=== PATIENT | male | born 1955 | race Caucasian/White ===

== ENCOUNTER 2024-02-20 17:37 | Inpatient (IN) | payer OTHER ==
[~2024-02-20] VITALS: Ht 175.3 cm; Wt 60.0 kg
[2024-02-20] MEDS: CefTRIAXone/D5W-Rocephin 1gm 50 ML IV ONE (18:05)
[2024-02-20 18:27] LABS: BASOPHILS # (AUTO) 0.1 X10'3 (0-0.2); BASOPHILS % (AUTO) 0.6 % (0-1); EOSINOPHILS # (AUTO) 0.2 X10'3 (0-0.9); EOSINOPHILS % (AUTO) 1.3 % (0-6); HEMOGLOBIN 13.9 g/dl (14.0-17.9); LYMPHOCYTES # (AUTO) 2.6 X10'3 (1.1-4.8); LYMPHOCYTES % (AUTO) 19.1 % (21-51); MEAN CORPUSCULAR HEMOGLOBIN 31.8 PG (27.0-31.0); MEAN CORPUSCULAR HGB CONC 32.4 g/dL (33.0-36.5); MEAN PLATELET VOLUME 7.2 FL (7.4-10.4); MONOCYTES # (AUTO) 1.3 X10'3 (0-0.9); MONOCYTES % (AUTO) 9.3 % (2-12); NEUTROPHILS # (AUTO) 9.6 X10'3 (1.8-7.7); NEUTROPHILS % (AUTO) 69.7 % (42-75); PLATELET COUNT 383 X10'3 (140-440); RED BLOOD COUNT 4.39 X10'6 (4.70-6.10); WHITE BLOOD COUNT 13.7 X10'3 (4.5-11.0)
[2024-02-20] MEDS: normal saline 1000ml 1,000 ML IV ONE (18:28)
[2024-02-20] MEDS: ipratropium/albuterol 3ml nebule NEB ONE (18:40)
[2024-02-20 18:41] VITALS: PULSE 126; RESP 18
[2024-02-20 18:42] LABS: ALANINE AMINOTRANSFERASE 48 U/L (12-78); ALBUMIN 3.4 G/DL (3.4-5.0); ALBUMIN/GLOBULIN RATIO 0.8 (1.1-1.5); ALKALINE PHOSPHATASE 72 IU/L (46-116); ANION GAP 8 (8-16); ASPARTATE AMINO TRANSFERASE 51 U/L (10-37); BILIRUBIN,TOTAL 0.4 MG/DL (0.1-1.0); BLOOD UREA NITROGEN 13 MG/DL (7-18); BUN/CREATININE RATIO 18.3 (10.0-20.0); CALCIUM 8.9 MG/DL (8.5-10.1); CHLORIDE 103 MMOL/L (99-107); CREATININE 0.71 MG/DL (0.60-1.10); GLUCOSE 102 MG/DL (70-104); POTASSIUM 4.2 MMOL/L (3.5-5.1); SODIUM 138 MMOL/L (135-145); TOTAL CARBON DIOXIDE 27.1 MMOL/L (24-32); TOTAL PROTEIN 7.8 G/DL (6.4-8.2); eCRCL 86 ML/MIN; eGFR > 90 ML/MIN
[2024-02-20] MEDS: methylPREDNISolone sod succ 125mg/2ml vial IV ONE (18:42)
[2024-02-20 18:48] LABS: PRO BRAIN NATRIURETIC PEPTIDE 77 PG/ML (0-125)
[2024-02-20 18:51] VITALS: PULSE 127; RESP 20; O2SAT 94
[2024-02-20] MEDS: LORazepam 2 mg/ml vial IV ONE (19:42)
[2024-02-20] MEDS ORDERED: magnesium Cl slow-release 64mg tablet PO PRN (21:35)
[2024-02-20] MEDS ORDERED: acetaminophen 325mg tablet PO PRN (21:35)
[2024-02-20] MEDS ORDERED: ondansetron/PF 4mg/2ml inj IV PRN (21:35)
[2024-02-20] MEDS ORDERED: morphine 2 MG/ML inj. syringe IV PRN (21:35)
[2024-02-20] MEDS ORDERED: magnesium sulf-water 2g/50mL 50 ML IV PRN (21:35)
[2024-02-20] MEDS ORDERED: mag hydrox/Alum hydrox/simeth 30ml oral suspension PO PRN (21:35)
[2024-02-20] MEDS ORDERED: magnesium hydroxide 30ml (MOM) UD suspension PO PRN (21:35)
[2024-02-20] MEDS ORDERED: magnesium sulf-water 4G/100mL 100 ML IV PRN (21:35)
[2024-02-20] MEDS ORDERED: potassium Cl 20 mEq SR tablet PO PRN ×2 (21:35)
[2024-02-20] MEDS ORDERED: potassium Cl 40MEQ/1/2NS 520ml 520 ML IV PRN (21:35)
[2024-02-20 21:52] LABS: APTT 23 SECONDS (22-32); PROTHROMBIN TIME 9.4 SECONDS (9.0-12.0)
[2024-02-20 22:00] LABS: HEMOGLOBIN A1C 5.7 % (4.5-6.2)
[2024-02-20 22:01] LABS: INR 0.9 INR
[2024-02-20 22:05] LABS: MAGNESIUM 1.9 MG/DL (1.5-2.4); PHOSPHORUS 5.4 MG/DL (2.3-4.5)
[2024-02-20] MEDS: LORazepam 2 mg/ml vial IV PRN (22:13)
[2024-02-20] MEDS: levoFLOXACIN-Levaquin 500mg/D5 100 ML IV SCH (22:13)
[2024-02-20] MEDS: normal saline 1000ml 1,000 ML IV SCH (22:13)
[2024-02-20 23:19] VITALS: PULSE 114; RESP 16; O2SAT 94
[2024-02-20] MEDS: ipratropium/albuterol 3ml nebule NEB SCH (23:19)
[2024-02-20 23:27] VITALS: PULSE 112; RESP 16
[2024-02-21] VITALS (17 sets, daily range): BP systolic 123–176; BP diastolic 69–96; PULSE 92–129; RESP 16–21; TEMP 97.6–98.1; O2SAT 92–99
[2024-02-21 01:44] LABS: BILIRUBIN,URINE NEGATIVE (Neg); CLARITY,URINE CLEAR (Clear); COLOR,URINE YELLOW (Yellow); GLUCOSE, URINE NEGATIVE (Neg); KETONES,URINE 15 mg/dl (Neg); LEUKOCYTE ESTERASE ,URINE NEGATIVE (Neg); NITRITES, URINE NEGATIVE (Neg); OCCULT BLOOD,URINE NEGATIVE (Neg); PROTEIN,URINE NEGATIVE (Neg); UROBILINOGEN,URINE 0.2 E.U/dL (0.2-1.0)
[2024-02-21 01:45] LABS: UA COLLECTION TYPE URINAL
[2024-02-21 02:26] LABS: BASOPHILS % (AUTO) 0 % (0-1); EOSINOPHILS % (AUTO) 0.1 % (0-6); HEMATOCRIT 39.6 % (42.0-52.0); LYMPHOCYTES # (AUTO) 0.6 X10'3 (1.1-4.8); LYMPHOCYTES % (AUTO) 7.1 % (21-51); MEAN CORPUSCULAR HEMOGLOBIN 31.9 PG (27.0-31.0); MEAN CORPUSCULAR HGB CONC 32.8 g/dL (33.0-36.5); MEAN CORPUSCULAR VOLUME 97.3 FL (78-98); MEAN PLATELET VOLUME 7.1 FL (7.4-10.4); MONOCYTES # (AUTO) 0.1 X10'3 (0-0.9); MONOCYTES % (AUTO) 1.4 % (2-12); NEUTROPHILS # (AUTO) 7.8 X10'3 (1.8-7.7); NEUTROPHILS % (AUTO) 91.4 % (42-75); PLATELET COUNT 328 X10'3 (140-440); RED BLOOD COUNT 4.07 X10'6 (4.70-6.10); RED CELL DISTRIBUTION WIDTH 15.3 % (11.5-14.5); WHITE BLOOD COUNT 8.6 X10'3 (4.5-11.0)
[2024-02-21 02:43] LABS: ALANINE AMINOTRANSFERASE 39 U/L (12-78); ALBUMIN/GLOBULIN RATIO 0.8 (1.1-1.5); ALKALINE PHOSPHATASE 60 IU/L (46-116); ANION GAP 11 (8-16); ASPARTATE AMINO TRANSFERASE 31 U/L (10-37); BILIRUBIN,TOTAL 0.5 MG/DL (0.1-1.0); BLOOD UREA NITROGEN 15 MG/DL (7-18); BUN/CREATININE RATIO 21.1 (10.0-20.0); CALCIUM 8.1 MG/DL (8.5-10.1); CHLORIDE 103 MMOL/L (99-107); CHOL/HDL RATIO 1.4 (0.00-4.99); CHOLESTEROL 125 MG/DL (0-200); CREATININE 0.71 MG/DL (0.60-1.10); GLUCOSE 103 MG/DL (70-104); HDL CHOLESTEROL 91 MG/DL (35-60); LDL CHOLESTEROL 24 MG/DL (50-100); MAGNESIUM 1.5 MG/DL (1.5-2.4); POTASSIUM 4.3 MMOL/L (3.5-5.1); SODIUM 137 MMOL/L (135-145); TOTAL CARBON DIOXIDE 23.5 MMOL/L (24-32); TOTAL PROTEIN 6.7 G/DL (6.4-8.2); TRIGLYCERIDES 20 MG/DL (20-135); eCRCL 86 ML/MIN; eGFR > 90 ML/MIN
[2024-02-21] MEDS: K and/or MAG REPLACEMENT MC SCH (07:15)
[2024-02-21] MEDS: docusate sod 100mg capsule PO SCH (08:00)
[2024-02-21] MEDS: azithromycin/NS 500mg/250ml 250 ML IV SCH (08:28)
[2024-02-21] MEDS: folic acid 1mg/0.2ml inj IV SCH (08:29)
[2024-02-21] MEDS: methylPREDNISolone sod succ/PF 40mg inj. IV SCH (08:29)
[2024-02-21] MEDS: thiamine 100mg/ml 2ml inj. IV SCH (08:29)
[2024-02-21] MEDS: multivitamins, therapeutics tablet PO SCH (08:29)
[2024-02-21] MEDS: heparin, porcine 5000 units/ml vial SQ SCH (08:30)
[2024-02-21] MEDS: CefTRIAXone/D5W-Rocephin 1gm 50 ML IV SCH (10:12)
[2024-02-21] MEDS ORDERED: NO HOME MEDS (13:50)
[2024-02-22] VITALS (20 sets, daily range): BP systolic 111–129; BP diastolic 68–84; PULSE 91–120; RESP 13–22; TEMP 97.9–98.9; O2SAT 92–97
[2024-02-22 07:46] LABS: BASOPHILS % (AUTO) 0 % (0-1); EOSINOPHILS % (AUTO) 0 % (0-6); HEMATOCRIT 42.1 % (42.0-52.0); HEMOGLOBIN 13.6 g/dl (14.0-17.9); LYMPHOCYTES # (AUTO) 1.2 X10'3 (1.1-4.8); LYMPHOCYTES % (AUTO) 9.3 % (21-51); MEAN CORPUSCULAR HEMOGLOBIN 31.3 PG (27.0-31.0); MEAN CORPUSCULAR HGB CONC 32.4 g/dL (33.0-36.5); MEAN CORPUSCULAR VOLUME 96.6 FL (78-98); MEAN PLATELET VOLUME 7.2 FL (7.4-10.4); MONOCYTES # (AUTO) 0.6 X10'3 (0-0.9); MONOCYTES % (AUTO) 4.3 % (2-12); NEUTROPHILS # (AUTO) 11.1 X10'3 (1.8-7.7); NEUTROPHILS % (AUTO) 86.4 % (42-75); PLATELET COUNT 354 X10'3 (140-440); RED BLOOD COUNT 4.36 X10'6 (4.70-6.10); WHITE BLOOD COUNT 12.9 X10'3 (4.5-11.0)
[2024-02-22 08:37] LABS: ALANINE AMINOTRANSFERASE 36 U/L (12-78); ALBUMIN 2.9 G/DL (3.4-5.0); ALBUMIN/GLOBULIN RATIO 0.7 (1.1-1.5); ALKALINE PHOSPHATASE 56 IU/L (46-116); ANION GAP 7 (8-16); ASPARTATE AMINO TRANSFERASE 22 U/L (10-37); BILIRUBIN,TOTAL 0.4 MG/DL (0.1-1.0); BLOOD UREA NITROGEN 10 MG/DL (7-18); BUN/CREATININE RATIO 17.2 (10.0-20.0); CALCIUM 8.7 MG/DL (8.5-10.1); CHLORIDE 106 MMOL/L (99-107); CREATININE 0.58 MG/DL (0.60-1.10); GLUCOSE 124 MG/DL (70-104); POTASSIUM 3.7 MMOL/L (3.5-5.1); SODIUM 140 MMOL/L (135-145); TOTAL CARBON DIOXIDE 27.2 MMOL/L (24-32); TOTAL PROTEIN 6.9 G/DL (6.4-8.2); eCRCL 105 ML/MIN; eGFR > 90 ML/MIN
[2024-02-22] MEDS: furosemide 40mg/4ml inj IV SCH (09:58)
[2024-02-22] MEDS: haloperidol 5mg tablet PO PRN (22:36)
[2024-02-23] VITALS (14 sets, daily range): BP systolic 124–169; BP diastolic 81–102; PULSE 87–126; RESP 15–21; TEMP 97.3–98.7; O2SAT 93–97
[2024-02-23 06:43] LABS: BASOPHILS % (AUTO) 0.1 % (0-1); EOSINOPHILS % (AUTO) 0 % (0-6); HEMATOCRIT 39.4 % (42.0-52.0); HEMOGLOBIN 13.4 g/dl (14.0-17.9); LYMPHOCYTES # (AUTO) 1.3 X10'3 (1.1-4.8); LYMPHOCYTES % (AUTO) 12.9 % (21-51); MEAN CORPUSCULAR HEMOGLOBIN 32.9 PG (27.0-31.0); MEAN CORPUSCULAR HGB CONC 33.9 g/dL (33.0-36.5); MEAN CORPUSCULAR VOLUME 96.9 FL (78-98); MONOCYTES # (AUTO) 0.7 X10'3 (0-0.9); MONOCYTES % (AUTO) 7.2 % (2-12); NEUTROPHILS # (AUTO) 8.1 X10'3 (1.8-7.7); NEUTROPHILS % (AUTO) 79.8 % (42-75); PLATELET COUNT 375 X10'3 (140-440); RED BLOOD COUNT 4.07 X10'6 (4.70-6.10); RED CELL DISTRIBUTION WIDTH 14.7 % (11.5-14.5); WHITE BLOOD COUNT 10.2 X10'3 (4.5-11.0)
[2024-02-23 07:34] LABS: ALANINE AMINOTRANSFERASE 35 U/L (12-78); ALBUMIN 2.7 G/DL (3.4-5.0); ALBUMIN/GLOBULIN RATIO 0.8 (1.1-1.5); ALKALINE PHOSPHATASE 51 IU/L (46-116); ANION GAP 6 (8-16); ASPARTATE AMINO TRANSFERASE 25 U/L (10-37); BILIRUBIN,TOTAL 0.3 MG/DL (0.1-1.0); BLOOD UREA NITROGEN 13 MG/DL (7-18); BUN/CREATININE RATIO 22.4 (10.0-20.0); CALCIUM 8.7 MG/DL (8.5-10.1); CHLORIDE 106 MMOL/L (99-107); CREATININE 0.58 MG/DL (0.60-1.10); GLUCOSE 125 MG/DL (70-104); MAGNESIUM 2.1 MG/DL (1.5-2.4); POTASSIUM 3.7 MMOL/L (3.5-5.1); SODIUM 140 MMOL/L (135-145); TOTAL PROTEIN 6.3 G/DL (6.4-8.2); eCRCL 105 ML/MIN; eGFR > 90 ML/MIN
[2024-02-24] VITALS (17 sets, daily range): BP systolic 99–149; BP diastolic 62–98; PULSE 91–118; RESP 15–20; TEMP 97.4–98.5; O2SAT 93–95
[2024-02-24 06:31] LABS: BASOPHILS % (AUTO) 0.1 % (0-1); EOSINOPHILS % (AUTO) 0.1 % (0-6); HEMATOCRIT 42.3 % (42.0-52.0); HEMOGLOBIN 13.9 g/dl (14.0-17.9); LYMPHOCYTES % (AUTO) 19.6 % (21-51); MEAN CORPUSCULAR HEMOGLOBIN 31.8 PG (27.0-31.0); MEAN CORPUSCULAR HGB CONC 32.8 g/dL (33.0-36.5); MEAN CORPUSCULAR VOLUME 96.8 FL (78-98); MEAN PLATELET VOLUME 7.5 FL (7.4-10.4); MONOCYTES # (AUTO) 0.9 X10'3 (0-0.9); MONOCYTES % (AUTO) 8.8 % (2-12); NEUTROPHILS # (AUTO) 7.1 X10'3 (1.8-7.7); NEUTROPHILS % (AUTO) 71.4 % (42-75); PLATELET COUNT 387 X10'3 (140-440); RED BLOOD COUNT 4.37 X10'6 (4.70-6.10); RED CELL DISTRIBUTION WIDTH 14.6 % (11.5-14.5); WHITE BLOOD COUNT 9.9 X10'3 (4.5-11.0)
[2024-02-24 06:40] LABS: ALANINE AMINOTRANSFERASE 35 U/L (12-78); ALBUMIN 2.7 G/DL (3.4-5.0); ALBUMIN/GLOBULIN RATIO 0.8 (1.1-1.5); ALKALINE PHOSPHATASE 49 IU/L (46-116); ANION GAP 7 (8-16); ASPARTATE AMINO TRANSFERASE 18 U/L (10-37); BILIRUBIN,TOTAL 0.3 MG/DL (0.1-1.0); BLOOD UREA NITROGEN 14 MG/DL (7-18); BUN/CREATININE RATIO 24.6 (10.0-20.0); CALCIUM 8.5 MG/DL (8.5-10.1); CHLORIDE 104 MMOL/L (99-107); CREATININE 0.57 MG/DL (0.60-1.10); GLUCOSE 120 MG/DL (70-104); MAGNESIUM 1.9 MG/DL (1.5-2.4); POTASSIUM 3.8 MMOL/L (3.5-5.1); SODIUM 140 MMOL/L (135-145); TOTAL CARBON DIOXIDE 29.5 MMOL/L (24-32); TOTAL PROTEIN 6.3 G/DL (6.4-8.2); eCRCL 107 ML/MIN; eGFR > 90 ML/MIN
[2024-02-24] MEDS: azithromycin 250mg tablet PO SCH (08:42)
[2024-02-24] MEDS: thiamine 100mg tablet PO SCH (08:42)
[2024-02-25 02:59] VITALS: PULSE 89; RESP 17; O2SAT 94
[2024-02-25 03:07] VITALS: PULSE 101; RESP 20
[2024-02-25 06:00] VITALS: BP 117/87; PULSE 99; RESP 16; TEMP 97.6; O2SAT 94
[2024-02-25 06:27] LABS: BASOPHILS % (AUTO) 0.2 % (0-1); EOSINOPHILS % (AUTO) 0.2 % (0-6); HEMATOCRIT 41.8 % (42.0-52.0); HEMOGLOBIN 13.9 g/dl (14.0-17.9); LYMPHOCYTES # (AUTO) 1.8 X10'3 (1.1-4.8); LYMPHOCYTES % (AUTO) 18.7 % (21-51); MEAN CORPUSCULAR HEMOGLOBIN 32.1 PG (27.0-31.0); MEAN CORPUSCULAR HGB CONC 33.2 g/dL (33.0-36.5); MEAN CORPUSCULAR VOLUME 96.7 FL (78-98); MEAN PLATELET VOLUME 7.2 FL (7.4-10.4); MONOCYTES # (AUTO) 0.9 X10'3 (0-0.9); MONOCYTES % (AUTO) 9.2 % (2-12); NEUTROPHILS % (AUTO) 71.7 % (42-75); PLATELET COUNT 399 X10'3 (140-440); RED BLOOD COUNT 4.32 X10'6 (4.70-6.10); RED CELL DISTRIBUTION WIDTH 14.9 % (11.5-14.5); WHITE BLOOD COUNT 9.8 X10'3 (4.5-11.0)
[2024-02-25 07:15] LABS: ALANINE AMINOTRANSFERASE 35 U/L (12-78); ALBUMIN 2.6 G/DL (3.4-5.0); ALBUMIN/GLOBULIN RATIO 0.8 (1.1-1.5); ALKALINE PHOSPHATASE 47 IU/L (46-116); ANION GAP 5 (8-16); ASPARTATE AMINO TRANSFERASE 17 U/L (10-37); BILIRUBIN,TOTAL 0.2 MG/DL (0.1-1.0); BLOOD UREA NITROGEN 17 MG/DL (7-18); BUN/CREATININE RATIO 32.1 (10.0-20.0); CALCIUM 8.6 MG/DL (8.5-10.1); CHLORIDE 104 MMOL/L (99-107); CREATININE 0.53 MG/DL (0.60-1.10); GLUCOSE 116 MG/DL (70-104); POTASSIUM 3.9 MMOL/L (3.5-5.1); SODIUM 138 MMOL/L (135-145); TOTAL CARBON DIOXIDE 29.1 MMOL/L (24-32); TOTAL PROTEIN 5.9 G/DL (6.4-8.2); eCRCL 115 ML/MIN; eGFR > 90 ML/MIN
[2024-02-25 07:44] VITALS: PULSE 85; PULSE 88; RESP 17; RESP 18; O2SAT 98
[2024-02-25] MEDS: folic acid 1mg tablet PO SCH (09:06)
[2024-02-25] MEDS ORDERED: ALBU90AE INH (10:13)
[2024-02-25] MEDS ORDERED: PRED10TA23 PO (10:13)
[2024-02-25] MEDS ORDERED: FLUT1DIS4 INH (10:13)
[2024-02-25 12:16] VITALS: PULSE 101; PULSE 102; RESP 17; RESP 18; O2SAT 96
== END 2024-02-25 14:49 | disposition home health service (06) | DRG 871 ==
LOC: ER 17:38 → ED HOLD 21:36 → EDBEDREQ 02-21 05:24 → ORTHO 4S 02-21 06:54
PROVIDERS: ADMIT Internal Medicine Pulmonary Disease; ATTEND Registered Nurse Psychiatric/Mental Health
DX: A41.9 Sepsis, unspecified organism (principal); J18.8 Other pneumonia, unspecified organism; J96.01 Acute respiratory failure with hypoxia; J44.1 Chronic obstructive pulmonary disease with (acute) exacerbation; J44.0 Chronic obstructive pulmonary disease with (acute) lower respiratory infection; F10.931 Alcohol use, unspecified with withdrawal delirium; Y90.9 Presence of alcohol in blood, level not specified; Z66 Do not resuscitate; Z79.899 Other long term (current) drug therapy; Z72.0 Tobacco use
CPT/HCPCS: 36415; 71045; 80053; 80061; 81003; 83036; 83605; 83735; 83880; 84100; 84484; 85025; 85610; 85730; 87040; 87081; 87502; 87503; 93005; 93971; 94640; 94760; 96365; 96375; 97116; 97161; 97530; 99285; A4615; A6449; G0378; J0456; J0696; J1644; J1940; J1956; J2060; J2919; J3411; J3490; J7030

== ENCOUNTER 2024-06-25 22:42 | Inpatient (IN) | payer OTHER ==
[~2024-06-25] VITALS: Ht 175.3 cm; Wt 79.0 kg
[~2024-06-25 22:42] MED LIST: ALBU90AE INH; FLUT1DIS4 INH; NO HOME MEDS
[2024-06-25] MEDS: methylPREDNISolone sod succ 125mg/2ml vial IV ONE (23:26)
[2024-06-25] MEDS: normal saline 1000ML IV soln IVB ONE (23:26)
[2024-06-25 23:32] LABS: BASOPHILS # (AUTO) 0.1 X10'3 (0-0.2); BASOPHILS % (AUTO) 0.7 % (0-1); EOSINOPHILS # (AUTO) 0.2 X10'3 (0-0.9); EOSINOPHILS % (AUTO) 2.3 % (0-6); HEMATOCRIT 45.1 % (42.0-52.0); HEMOGLOBIN 15.2 g/dl (14.0-17.9); LYMPHOCYTES # (AUTO) 2.3 X10'3 (1.1-4.8); LYMPHOCYTES % (AUTO) 22.1 % (21-51); MEAN CORPUSCULAR HEMOGLOBIN 31.9 PG (27.0-31.0); MEAN CORPUSCULAR HGB CONC 33.7 g/dL (33.0-36.5); MEAN CORPUSCULAR VOLUME 94.6 FL (78-98); MEAN PLATELET VOLUME 7.1 FL (7.4-10.4); MONOCYTES # (AUTO) 0.8 X10'3 (0-0.9); MONOCYTES % (AUTO) 7.3 % (2-12); NEUTROPHILS % (AUTO) 67.6 % (42-75); PLATELET COUNT 314 X10'3 (140-440); RED BLOOD COUNT 4.77 X10'6 (4.70-6.10); RED CELL DISTRIBUTION WIDTH 13.5 % (11.5-14.5); WHITE BLOOD COUNT 10.4 X10'3 (4.5-11.0)
[2024-06-25 23:44] LABS: APTT 23 SECONDS (22-32); PROTHROMBIN TIME 9.7 SECONDS (9.0-12.0)
[2024-06-25 23:51] LABS: ANION GAP 6 (8-16); BLOOD UREA NITROGEN 9 MG/DL (7-18); BUN/CREATININE RATIO 16.1 (10.0-20.0); CHLORIDE 98 MMOL/L (99-107); CREATININE 0.56 MG/DL (0.60-1.10); GLUCOSE 107 MG/DL (70-104); SODIUM 136 MMOL/L (135-145); TOTAL CARBON DIOXIDE 32.1 MMOL/L (24-32); eCRCL 128 ML/MIN; eGFR > 90 ML/MIN
[2024-06-25 23:52] LABS: ALBUMIN 3.2 G/DL (3.4-5.0); CALCIUM 9.4 MG/DL (8.5-10.1); PRO BRAIN NATRIURETIC PEPTIDE 39 PG/ML (0-125)
[2024-06-25 23:54] LABS: INR 0.9 INR; POTASSIUM 4.6 MMOL/L (3.5-5.1)
[2024-06-26] VITALS (17 sets, daily range): BP systolic 106–153; BP diastolic 83–103; PULSE 97–120; RESP 16–24; TEMP 96.9–98.4; O2SAT 95–100
[2024-06-26] MEDS: albuterol 2.5 MG/3 ML nebule NEB ONE (00:32)
[2024-06-26] MEDS ORDERED: magnesium sulf-water 2g/50mL 50 ML IV PRN (01:50)
[2024-06-26] MEDS ORDERED: potassium Cl 40MEQ/1/2NS 520ml 520 ML IV PRN (01:50)
[2024-06-26] MEDS ORDERED: magnesium sulf-water 4G/100mL 100 ML IV PRN (01:50)
[2024-06-26 02:37] LABS: MAGNESIUM 1.9 MG/DL (1.5-2.4); POTASSIUM 4.1 MMOL/L (3.5-5.1)
[2024-06-26] MEDS: albuterol 2.5 MG/3 ML nebule NEB SCH (08:00)
[2024-06-26] MEDS: methylPREDNISolone sod succ/PF 40mg inj. IV SCH (09:02)
[2024-06-26] MEDS: nicotine 14mg patch - 24hr TD SCH (09:02)
[2024-06-26] MEDS ORDERED: pneumococcal 23-VAL P-sac vacc 25 mcg/0.5ml vial IMVAC ONE (10:00)
[2024-06-26] MEDS ORDERED: LORazepam 2 mg/ml vial IV PRN (23:10)
[2024-06-26] MEDS ORDERED: LORazepam 1 MG tablet PO PRN (23:10)
[2024-06-27 06:00] VITALS: BP 128/90; PULSE 86; RESP 18; TEMP 97.4; O2SAT 99
[2024-06-27 06:01] LABS: MAGNESIUM 1.9 MG/DL (1.5-2.4)
[2024-06-27 08:00] VITALS: RESP 18; O2SAT 99
[2024-06-27 08:40] VITALS: PULSE 108; RESP 22; O2SAT 97
[2024-06-27 08:57] VITALS: PULSE 104; RESP 18
[2024-06-27 09:09] LABS: HBSAG SCREEN Confirm. indicated (Negative); HEP B SURF AB Non Reactive (.)
[2024-06-27 11:13] LABS: HBSAG CONFIRMATION Positive (.); HEP B CORE AB, IGM Negative (Negative); HEP B CORE AB, TOT Positive (Negative)
[2024-06-27 11:44] LABS: BASOPHILS % (AUTO) 0.2 % (0-1); EOSINOPHILS % (AUTO) 0 % (0-6); HEMATOCRIT 41.2 % (42.0-52.0); HEMOGLOBIN 13.8 g/dl (14.0-17.9); LYMPHOCYTES # (AUTO) 1.6 X10'3 (1.1-4.8); LYMPHOCYTES % (AUTO) 8.5 % (21-51); MEAN CORPUSCULAR HEMOGLOBIN 31.8 PG (27.0-31.0); MEAN CORPUSCULAR HGB CONC 33.4 g/dL (33.0-36.5); MEAN CORPUSCULAR VOLUME 95.2 FL (78-98); MEAN PLATELET VOLUME 7.9 FL (7.4-10.4); MONOCYTES # (AUTO) 0.9 X10'3 (0-0.9); MONOCYTES % (AUTO) 4.4 % (2-12); NEUTROPHILS # (AUTO) 16.8 X10'3 (1.8-7.7); NEUTROPHILS % (AUTO) 86.9 % (42-75); PLATELET COUNT 363 X10'3 (140-440); RED BLOOD COUNT 4.33 X10'6 (4.70-6.10); RED CELL DISTRIBUTION WIDTH 13.6 % (11.5-14.5); WHITE BLOOD COUNT 19.4 X10'3 (4.5-11.0)
[2024-06-27 11:57] LABS: ALANINE AMINOTRANSFERASE 18 U/L (12-78); ALBUMIN 2.9 G/DL (3.4-5.0); ALBUMIN/GLOBULIN RATIO 0.7 (1.1-1.5); ALKALINE PHOSPHATASE 68 IU/L (46-116); ANION GAP 6 (8-16); ASPARTATE AMINO TRANSFERASE 15 U/L (10-37); BILIRUBIN,TOTAL 0.3 MG/DL (0.1-1.0); BLOOD UREA NITROGEN 13 MG/DL (7-18); BUN/CREATININE RATIO 26.5 (10.0-20.0); CALCIUM 9.3 MG/DL (8.5-10.1); CHLORIDE 105 MMOL/L (99-107); CREATININE 0.49 MG/DL (0.60-1.10); GLUCOSE 126 MG/DL (70-104); POTASSIUM 4.2 MMOL/L (3.5-5.1); SODIUM 141 MMOL/L (135-145); TOTAL CARBON DIOXIDE 30.5 MMOL/L (24-32); TOTAL PROTEIN 7.1 G/DL (6.4-8.2); eCRCL 146 ML/MIN; eGFR > 90 ML/MIN
[2024-06-27] MEDS ORDERED: BUDE0.5A11 NEB (13:18)
[2024-06-27] MEDS ORDERED: NICO-631 TD (13:18)
[2024-06-27] MEDS ORDERED: PRED20TA PO (13:18)
[2024-06-27] MEDS ORDERED: ALBU2.5V7 NEB (13:19)
[2024-06-27] MEDS ORDERED: ALBU90AE INH (13:19)
[2024-06-30] MEDS ORDERED: thiamine 100mg tablet PO SCH (08:00)
[2024-07-01] MEDS ORDERED: folic acid 1mg tablet PO SCH (08:00)
== END 2024-06-27 14:45 | disposition home or self-care (01) | DRG 189 ==
LOC: ER 22:43 → ORTHO 4S 06-26 01:54
PROVIDERS: ADMIT Internal Medicine Critical Care Medicine; ATTEND Internal Medicine
DX: J96.21 Acute and chronic respiratory failure with hypoxia (principal); J44.1 Chronic obstructive pulmonary disease with (acute) exacerbation; D72.823 Leukemoid reaction; Z87.891 Personal history of nicotine dependence; Z79.899 Other long term (current) drug therapy; Z82.5 Family history of asthma and other chronic lower respiratory diseases
CPT/HCPCS: 36415; 71045; 80048; 80053; 83735; 83880; 84132; 84484; 85025; 85610; 85730; 86704; 86705; 86706; 87081; 87340; 93005; 94640; 94760; 99291; A6258; G0378; J2919; J7030

== ENCOUNTER 2024-08-20 00:20 | Emergency (ER) | payer OTHER, MEDICARE ==
[~2024-08-20] VITALS: Ht 175.3 cm; Wt 60.0 kg
[~2024-08-20 00:20] MED LIST changes: +ALBU2.5V7 NEB; +BUDE0.5A11 NEB; -FLUT1DIS4 INH; -NO HOME MEDS; +PRED20TA PO
[2024-08-20 00:51] LABS: BASOPHILS # (AUTO) 0.1 X10'3 (0-0.2); BASOPHILS % (AUTO) 0.3 % (0-1); EOSINOPHILS # (AUTO) 0.2 X10'3 (0-0.9); EOSINOPHILS % (AUTO) 0.9 % (0-6); HEMATOCRIT 43.1 % (42.0-52.0); HEMOGLOBIN 14.1 g/dl (14.0-17.9); LYMPHOCYTES % (AUTO) 15.3 % (21-51); MEAN CORPUSCULAR HEMOGLOBIN 30.9 PG (27.0-31.0); MEAN CORPUSCULAR HGB CONC 32.6 g/dL (33.0-36.5); MEAN CORPUSCULAR VOLUME 94.9 FL (78-98); MEAN PLATELET VOLUME 6.7 FL (7.4-10.4); MONOCYTES # (AUTO) 1.7 X10'3 (0-0.9); MONOCYTES % (AUTO) 8.5 % (2-12); NEUTROPHILS # (AUTO) 14.6 X10'3 (1.8-7.7); PLATELET COUNT 393 X10'3 (140-440); RED BLOOD COUNT 4.55 X10'6 (4.70-6.10); RED CELL DISTRIBUTION WIDTH 13.6 % (11.5-14.5); WHITE BLOOD COUNT 19.4 X10'3 (4.5-11.0)
[2024-08-20 01:07] LABS: ALANINE AMINOTRANSFERASE 23 U/L (12-78); ALBUMIN/GLOBULIN RATIO 0.6 (1.1-1.5); ALKALINE PHOSPHATASE 77 IU/L (46-116); ANION GAP 4 (8-16); ASPARTATE AMINO TRANSFERASE 20 U/L (10-37); BILIRUBIN,TOTAL 0.4 MG/DL (0.1-1.0); BLOOD UREA NITROGEN 14 MG/DL (7-18); BUN/CREATININE RATIO 26.4 (10.0-20.0); CALCIUM 9.1 MG/DL (8.5-10.1); CHLORIDE 98 MMOL/L (99-107); CREATININE 0.53 MG/DL (0.60-1.10); GLUCOSE 123 MG/DL (70-104); POTASSIUM 4.2 MMOL/L (3.5-5.1); SODIUM 135 MMOL/L (135-145); TOTAL PROTEIN 7.7 G/DL (6.4-8.2); eCRCL 115 ML/MIN; eGFR > 90 ML/MIN
[2024-08-20 01:13] LABS: PRO BRAIN NATRIURETIC PEPTIDE 58 PG/ML (0-125)
[2024-08-20] MEDS: methylPREDNISolone sod succ 125mg/2ml vial IV ONE (01:26)
[2024-08-20] MEDS: normal saline 1000ML IV soln IVB ONE (01:26)
[2024-08-20] MEDS: triamcinolone acetonide 40mg/ml inj IM ONE (01:28)
[2024-08-20] MEDS: albuterol 2.5 MG/3 ML nebule NEB ONE (01:41)
[2024-08-20 01:42] VITALS: PULSE 121; RESP 20; O2SAT 99
[2024-08-20 01:51] VITALS: PULSE 126; RESP 18; O2SAT 100
[2024-08-20] MEDS ORDERED: ALB0.5UD NEB (02:45)
[2024-08-20] MEDS ORDERED: ALBU18HF2 INH (02:45)
[2024-08-20 06:13] VITALS: BP 130/72; PULSE 99; RESP 18; TEMP 98.6; O2SAT 96
== END 2024-08-20 06:15 | disposition home or self-care (01) ==
LOC: ER 00:21
DX: J44.1 Chronic obstructive pulmonary disease with (acute) exacerbation (principal); Z20.822 Contact with and (suspected) exposure to COVID-19
CPT/HCPCS: 36415; 71045; 80053; 83605; 83880; 84145; 84484; 85025; 87040; 87502; 87503; 87811; 93005; 94640; 96361; 96372; 96374; 99285; J2919; J3301; J7030; 94760; A4615

== ENCOUNTER 2024-09-04 10:48 | Inpatient (IN) | payer OTHER, MEDICARE ==
[~2024-09-04] VITALS: Ht 175.3 cm; Wt 57.9 kg
[~2024-09-04 10:48] MED LIST changes: +ALB0.5UD NEB; +ALBU18HF2 INH
[2024-09-04 12:39] LABS: BASOPHILS # (AUTO) 0.1 X10'3 (0-0.2); BASOPHILS % (AUTO) 0.7 % (0-1); EOSINOPHILS # (AUTO) 0.3 X10'3 (0-0.9); EOSINOPHILS % (AUTO) 2.4 % (0-6); HEMATOCRIT 42.1 % (42.0-52.0); HEMOGLOBIN 13.9 g/dl (14.0-17.9); LYMPHOCYTES # (AUTO) 1.7 X10'3 (1.1-4.8); LYMPHOCYTES % (AUTO) 13.2 % (21-51); MEAN CORPUSCULAR HEMOGLOBIN 31.1 PG (27.0-31.0); MEAN CORPUSCULAR VOLUME 94.1 FL (78-98); MEAN PLATELET VOLUME 6.8 FL (7.4-10.4); MONOCYTES % (AUTO) 7.8 % (2-12); NEUTROPHILS # (AUTO) 9.6 X10'3 (1.8-7.7); NEUTROPHILS % (AUTO) 75.9 % (42-75); PLATELET COUNT 346 X10'3 (140-440); RED BLOOD COUNT 4.48 X10'6 (4.70-6.10); RED CELL DISTRIBUTION WIDTH 13.7 % (11.5-14.5); WHITE BLOOD COUNT 12.6 X10'3 (4.5-11.0)
[2024-09-04 13:46] LABS: ALBUMIN 2.9 G/DL (3.4-5.0); ANION GAP 5 (8-16); BLOOD UREA NITROGEN 7 MG/DL (7-18); BUN/CREATININE RATIO 15.2 (10.0-20.0); CALCIUM 8.6 MG/DL (8.5-10.1); CHLORIDE 102 MMOL/L (99-107); CREATININE 0.46 MG/DL (0.60-1.10); GLUCOSE 87 MG/DL (70-104); POTASSIUM 4.1 MMOL/L (3.5-5.1); PRO BRAIN NATRIURETIC PEPTIDE 61 PG/ML (0-125); SODIUM 139 MMOL/L (135-145); TOTAL CARBON DIOXIDE 32.4 MMOL/L (24-32); eCRCL 145 ML/MIN; eGFR > 90 ML/MIN
[2024-09-04] MEDS: dexamethasone sod phosphate 10mg/ml inj IM STA (14:03)
[2024-09-04] MEDS: dexamethasone 4mg/ml inj IV ONE (14:03)
[2024-09-04] MEDS: albuterol 2.5 MG/3 ML nebule NEB ONE (14:25)
[2024-09-04] MEDS: ipratropium/albuterol 3ml nebule NEB PRN (14:25)
[2024-09-04 14:26] VITALS: PULSE 116; RESP 20; O2SAT 93
[2024-09-04 15:13] VITALS: PULSE 122; RESP 18
[2024-09-04] MEDS ORDERED: PRED5TAB PO (15:33)
[2024-09-04] MEDS ORDERED: magnesium Cl slow-release 64mg tablet PO PRN (15:35)
[2024-09-04] MEDS ORDERED: potassium Cl 40MEQ/1/2NS 520ml 520 ML IV PRN (15:35)
[2024-09-04] MEDS ORDERED: magnesium hydroxide 30ml (MOM) UD suspension PO PRN (15:35)
[2024-09-04] MEDS ORDERED: magnesium sulf-water 4G/100mL 100 ML IV PRN (15:35)
[2024-09-04] MEDS ORDERED: potassium Cl 20 mEq SR tablet PO PRN ×2 (15:35)
[2024-09-04] MEDS ORDERED: magnesium sulf-water 2g/50mL 50 ML IV PRN (15:35)
[2024-09-04] MEDS ORDERED: ipratropium/albuterol 3ml nebule NEB PRN (15:40)
[2024-09-04] MEDS: methylPREDNISolone sod succ 125mg/2ml vial IV SCH (16:21)
[2024-09-04] MEDS: CefTRIAXone/D5W-Rocephin 1gm 50 ML IV SCH (16:26)
[2024-09-04] MEDS: azithromycin 250mg tablet PO SCH (16:26)
[2024-09-04 17:26] LABS: BILIRUBIN,URINE NEGATIVE (Neg); CLARITY,URINE CLEAR (Clear); COLOR,URINE YELLOW (Yellow); GLUCOSE, URINE NEGATIVE (Neg); KETONES,URINE 15 mg/dl (Neg); LEUKOCYTE ESTERASE ,URINE SMALL (Neg); NITRITES, URINE NEGATIVE (Neg); OCCULT BLOOD,URINE NEGATIVE (Neg); PROTEIN,URINE NEGATIVE (Neg); UROBILINOGEN,URINE 0.2 E.U/dL (0.2-1.0)
[2024-09-04 17:32] LABS: UA COLLECTION TYPE URINAL
[2024-09-04 17:37] LABS: BACTERIA,URINE 1+ /HPF (Neg); RBC,URINE 0-2 /HPF (0-2); SQUAMOUS EPITHELIAL CELL,UR NONE SEEN /LPF (FEW); WBC,URINE 0-4 /HPF (0-4)
[2024-09-04 17:48] LABS: HEMOGLOBIN A1C 5.7 % (4.5-6.2)
[2024-09-04] MEDS ORDERED: haloperidol lactate 5mg/ml inj IM PRN (18:05)
[2024-09-04 18:26] LABS: ETHANOL < 10 MG/DL (<10)
[2024-09-04 19:07] VITALS: PULSE 111; RESP 18; O2SAT 96
[2024-09-04] MEDS: ipratropium/albuterol 3ml nebule NEB SCH (19:07)
[2024-09-04 19:15] VITALS: PULSE 106; RESP 17
[2024-09-04 19:21] LABS: URINE AMPHETAMINE SCREEN NEGATIVE (Neg); URINE BARBITUATE SCREEN NEGATIVE (Neg); URINE BENZODIAZEPINES SCREEN NEGATIVE (Neg); URINE CANNABINOID SCREEN NEGATIVE (Neg); URINE COCAINE SCREEN NEGATIVE (Neg); URINE METHADONE SCREEN NEGATIVE (Neg); URINE OPIATE SCREEN NEGATIVE (Neg); URINE PHENCYCLIDINE SCREEN NEGATIVE (Neg)
[2024-09-04 20:00] VITALS: RESP 14; O2SAT 94
[2024-09-04] MEDS: K and/or MAG REPLACEMENT MC SCH (20:00)
[2024-09-04] MEDS: docusate sod 100mg capsule PO SCH (20:37)
[2024-09-04] MEDS: heparin, porcine 5000 units/ml vial SQ SCH (20:37)
[2024-09-04] MEDS: thiamine 100mg/ml 2ml inj. IV SCH (21:20)
[2024-09-04 23:55] VITALS: BP 141/75; PULSE 101; RESP 14; RESP 20; TEMP 97.6; O2SAT 94
[2024-09-05] VITALS (16 sets, daily range): BP systolic 105–159; BP diastolic 60–95; PULSE 83–123; RESP 12–21; TEMP 96.6–98; O2SAT 92–99
[2024-09-05 06:00] LABS: BASOPHILS % (AUTO) 0 % (0-1); EOSINOPHILS % (AUTO) 0 % (0-6); HEMATOCRIT 36.8 % (42.0-52.0); HEMOGLOBIN 12.4 g/dl (14.0-17.9); LYMPHOCYTES # (AUTO) 0.8 X10'3 (1.1-4.8); LYMPHOCYTES % (AUTO) 7.4 % (21-51); MEAN CORPUSCULAR HEMOGLOBIN 31.3 PG (27.0-31.0); MEAN CORPUSCULAR HGB CONC 33.8 g/dL (33.0-36.5); MEAN CORPUSCULAR VOLUME 92.6 FL (78-98); MONOCYTES # (AUTO) 0.2 X10'3 (0-0.9); MONOCYTES % (AUTO) 2.3 % (2-12); NEUTROPHILS # (AUTO) 9.7 X10'3 (1.8-7.7); NEUTROPHILS % (AUTO) 90.3 % (42-75); PLATELET COUNT 322 X10'3 (140-440); RED BLOOD COUNT 3.98 X10'6 (4.70-6.10); RED CELL DISTRIBUTION WIDTH 13.6 % (11.5-14.5); WHITE BLOOD COUNT 10.7 X10'3 (4.5-11.0)
[2024-09-05 06:21] LABS: ALANINE AMINOTRANSFERASE 23 U/L (12-78); ALBUMIN 2.6 G/DL (3.4-5.0); ALBUMIN/GLOBULIN RATIO 0.8 (1.1-1.5); ALKALINE PHOSPHATASE 59 IU/L (46-116); ANION GAP 2 (8-16); ASPARTATE AMINO TRANSFERASE 10 U/L (10-37); BILIRUBIN,TOTAL 0.3 MG/DL (0.1-1.0); BLOOD UREA NITROGEN 11 MG/DL (7-18); BUN/CREATININE RATIO 22.4 (10.0-20.0); CALCIUM 8.4 MG/DL (8.5-10.1); CHLORIDE 104 MMOL/L (99-107); CHOL/HDL RATIO 2.6 (0.00-4.99); CHOLESTEROL 181 MG/DL (0-200); CREATININE 0.49 MG/DL (0.60-1.10); GLUCOSE 123 MG/DL (70-104); HDL CHOLESTEROL 69 MG/DL (35-60); LDL CHOLESTEROL 98 MG/DL (50-100); POTASSIUM 3.9 MMOL/L (3.5-5.1); SODIUM 140 MMOL/L (135-145); TOTAL CARBON DIOXIDE 33.7 MMOL/L (24-32); TRIGLYCERIDES 33 MG/DL (20-135); eCRCL 136 ML/MIN; eGFR > 90 ML/MIN
[2024-09-05] MEDS: folic acid 1mg/0.2ml inj IV SCH (10:27)
[2024-09-05] MEDS: LORazepam 1 MG tablet PO PRN (14:29)
[2024-09-05] MEDS: mag hydrox/Alum hydrox/simeth 30ml oral suspension PO PRN (14:32)
[2024-09-05] MEDS: ondansetron/PF 4mg/2ml inj IV PRN (16:06)
[2024-09-05] MEDS: CefTRIAXone/D5W-Rocephin 1gm 50 ML IV SCH (16:11)
[2024-09-05] MEDS: diazepam inj 5 MG/ML inj. IV SCH (17:56)
[2024-09-05] MEDS: ondansetron/PF 4mg/2ml inj IV ONE (17:57)
[2024-09-05] MEDS: acetaminophen 325mg tablet PO PRN (20:23)
[2024-09-05] MEDS: haloperidol 5mg tablet PO PRN (21:53)
[2024-09-06] VITALS (20 sets, daily range): BP systolic 121–168; BP diastolic 74–89; PULSE 92–108; RESP 13–21; TEMP 97.2–98; O2SAT 94–99
[2024-09-06 07:34] LABS: BASOPHILS % (AUTO) 0.2 % (0-1); EOSINOPHILS % (AUTO) 0 % (0-6); HEMATOCRIT 38.6 % (42.0-52.0); HEMOGLOBIN 12.9 g/dl (14.0-17.9); LYMPHOCYTES # (AUTO) 1.1 X10'3 (1.1-4.8); LYMPHOCYTES % (AUTO) 5.8 % (21-51); MEAN CORPUSCULAR HEMOGLOBIN 30.9 PG (27.0-31.0); MEAN CORPUSCULAR HGB CONC 33.4 g/dL (33.0-36.5); MEAN CORPUSCULAR VOLUME 92.6 FL (78-98); MEAN PLATELET VOLUME 7.3 FL (7.4-10.4); MONOCYTES # (AUTO) 0.7 X10'3 (0-0.9); MONOCYTES % (AUTO) 3.5 % (2-12); NEUTROPHILS # (AUTO) 17.3 X10'3 (1.8-7.7); NEUTROPHILS % (AUTO) 90.5 % (42-75); PLATELET COUNT 345 X10'3 (140-440); RED BLOOD COUNT 4.17 X10'6 (4.70-6.10); RED CELL DISTRIBUTION WIDTH 13.7 % (11.5-14.5); WHITE BLOOD COUNT 19.1 X10'3 (4.5-11.0)
[2024-09-06 07:54] LABS: ALANINE AMINOTRANSFERASE 16 U/L (12-78); ALBUMIN 2.6 G/DL (3.4-5.0); ALBUMIN/GLOBULIN RATIO 0.7 (1.1-1.5); ALKALINE PHOSPHATASE 60 IU/L (46-116); ANION GAP 5 (8-16); ASPARTATE AMINO TRANSFERASE 12 U/L (10-37); BILIRUBIN,TOTAL 0.3 MG/DL (0.1-1.0); BLOOD UREA NITROGEN 12 MG/DL (7-18); CALCIUM 8.6 MG/DL (8.5-10.1); CHLORIDE 104 MMOL/L (99-107); GLUCOSE 133 MG/DL (70-104); POTASSIUM 4.3 MMOL/L (3.5-5.1); SODIUM 139 MMOL/L (135-145); TOTAL PROTEIN 6.1 G/DL (6.4-8.2); eCRCL 98 ML/MIN; eGFR > 90 ML/MIN
[2024-09-06] MEDS ORDERED: diazepam inj 5 MG/ML inj. IV SCH (18:05)
[2024-09-06] MEDS: chlordiazePOXIDE 5mg capsule PO SCH (21:01)
[2024-09-07] VITALS (16 sets, daily range): BP systolic 118–160; BP diastolic 70–99; PULSE 82–123; RESP 12–20; TEMP 97.3–98.7; O2SAT 93–98
[2024-09-07 07:03] LABS: BASOPHILS # (AUTO) 0.1 X10'3 (0-0.2); BASOPHILS % (AUTO) 0.5 % (0-1); EOSINOPHILS % (AUTO) 0 % (0-6); HEMATOCRIT 36.8 % (42.0-52.0); HEMOGLOBIN 12.5 g/dl (14.0-17.9); LYMPHOCYTES # (AUTO) 0.8 X10'3 (1.1-4.8); LYMPHOCYTES % (AUTO) 4.9 % (21-51); MEAN CORPUSCULAR HEMOGLOBIN 31.4 PG (27.0-31.0); MEAN CORPUSCULAR HGB CONC 33.9 g/dL (33.0-36.5); MEAN CORPUSCULAR VOLUME 92.6 FL (78-98); MEAN PLATELET VOLUME 7.3 FL (7.4-10.4); MONOCYTES # (AUTO) 0.4 X10'3 (0-0.9); MONOCYTES % (AUTO) 2.7 % (2-12); NEUTROPHILS # (AUTO) 14.4 X10'3 (1.8-7.7); NEUTROPHILS % (AUTO) 91.9 % (42-75); PLATELET COUNT 299 X10'3 (140-440); RED BLOOD COUNT 3.98 X10'6 (4.70-6.10); RED CELL DISTRIBUTION WIDTH 13.6 % (11.5-14.5); WHITE BLOOD COUNT 15.7 X10'3 (4.5-11.0)
[2024-09-07 07:13] LABS: ALANINE AMINOTRANSFERASE 14 U/L (12-78); ALBUMIN 2.5 G/DL (3.4-5.0); ALBUMIN/GLOBULIN RATIO 0.7 (1.1-1.5); ALKALINE PHOSPHATASE 55 IU/L (46-116); ANION GAP 4 (8-16); ASPARTATE AMINO TRANSFERASE 10 U/L (10-37); BILIRUBIN,TOTAL 0.2 MG/DL (0.1-1.0); BLOOD UREA NITROGEN 14 MG/DL (7-18); BUN/CREATININE RATIO 25.5 (10.0-20.0); CALCIUM 8.7 MG/DL (8.5-10.1); CHLORIDE 105 MMOL/L (99-107); CREATININE 0.55 MG/DL (0.60-1.10); GLUCOSE 130 MG/DL (70-104); POTASSIUM 4.2 MMOL/L (3.5-5.1); SODIUM 141 MMOL/L (135-145); TOTAL CARBON DIOXIDE 32.2 MMOL/L (24-32); TOTAL PROTEIN 5.9 G/DL (6.4-8.2); eCRCL 107 ML/MIN; eGFR > 90 ML/MIN
[2024-09-07] MEDS: LORazepam 1 MG tablet PO PRN (12:45)
[2024-09-07] MEDS ORDERED: BUDE10.2 INH (15:24)
[2024-09-07] MEDS ORDERED: CEFD300C3 PO (15:25)
[2024-09-07] MEDS ORDERED: LACT1CAP26 PO (15:25)
[2024-09-07] MEDS ORDERED: PRED10TA23 PO (17:50)
[2024-09-07] MEDS ORDERED: ALBU8HFA INH (17:50)
[2024-09-07] MEDS ORDERED: ALB0.5UD NEB (17:50)
[2024-09-07] MEDS: ondansetron 4mg rapidly disintigrating tab PO ONE (18:00)
[2024-09-08] MEDS ORDERED: diazepam inj 5 MG/ML inj. IV PRN (18:05)
[2024-09-08] MEDS ORDERED: LORazepam 1 MG tablet PO PRN (18:05)
== END 2024-09-07 20:53 | disposition home or self-care (01) | DRG 189 ==
LOC: ER 10:48 → ED HOLD 15:34 → UNDOADMIN 16:06 → PCU 3S 23:55 → ED HOLD 23:55
PROVIDERS: ADMIT Family Medicine; ATTEND Family Medicine
DX: J96.01 Acute respiratory failure with hypoxia (principal); J18.9 Pneumonia, unspecified organism; J44.1 Chronic obstructive pulmonary disease with (acute) exacerbation; J44.0 Chronic obstructive pulmonary disease with (acute) lower respiratory infection; R65.10 Systemic inflammatory response syndrome (SIRS) of non-infectious origin without acute organ dysfunction; Z20.822 Contact with and (suspected) exposure to COVID-19; F17.210 Nicotine dependence, cigarettes, uncomplicated; F10.10 Alcohol abuse, uncomplicated; Y90.0 Blood alcohol level of less than 20 mg/100 ml; J43.9 Emphysema, unspecified; Z91.148 Patient's other noncompliance with medication regimen for other reason; Z82.5 Family history of asthma and other chronic lower respiratory diseases
CPT/HCPCS: 36415; 71045; 80048; 80053; 80061; 80305; 80320; 81001; 83036; 83880; 84145; 84484; 85025; 85379; 87040; 87081; 87088; 87502; 87503; 87811; 93005; 94640; 94760; 96372; 96374; 97110; 97116; 97162; 97530; 99285; A4615; G0378; J0696; J1100; J1644; J2405; J2919; J3360; J3411; J3490